=== PATIENT | female | born 1960 | race Caucasian/White ===

== ENCOUNTER 2018-02-15 15:02 | Outpatient (RCR) | payer OTHER | END 2018-03-29 | disposition home or self-care (01) | LOC: WSOH | DX: S66.011D Strain of long flexor muscle, fascia and tendon of right thumb at wrist and hand level, subsequent encounter (principal); M65.30 Trigger finger, unspecified finger; X50.0XXD Overexertion from strenuous movement or load, subsequent encounter; Y92.230 Patient room in hospital as the place of occurrence of the external cause; Y99.0 Civilian activity done for income or pay | CPT/HCPCS: J3301 ==

== ENCOUNTER 2018-10-04 13:29 | Outpatient (RCR) | payer OTHER | END 2018-10-25 15:42 | disposition home or self-care (01) | LOC: WSOH 13:29 | DX: S66.011D Strain of long flexor muscle, fascia and tendon of right thumb at wrist and hand level, subsequent encounter (principal); M65.30 Trigger finger, unspecified finger ==

== ENCOUNTER 2018-11-08 14:56 | Outpatient (RCR) | payer OTHER | END 2018-12-05 10:22 | disposition home or self-care (01) | LOC: WSOH 14:56 | DX: S66.011D Strain of long flexor muscle, fascia and tendon of right thumb at wrist and hand level, subsequent encounter (principal); M65.30 Trigger finger, unspecified finger ==